=== PATIENT | male | born 1970 | race Caucasian/White ===

== ENCOUNTER 2022-06-25 00:57 | Emergency (ER) | payer BC, MEDICAID, SELFPAY ==
--- NOTE | 2022-06-25 | ECG_ITS ---
APPROVED REPORT Exam: Resting ECG HR:64 bpm ECG Measurements Heart Rate 64 AXES NC 181 P 65 QRSd 106 QRS 35 QT 421 T 34 QTc 430 Conclusion SINUS RHYTHM NORMAL ECG UNCONFIRMED REPORT Electronically signed by : Robbie Beltran MD 06/25/2022 21:39:32
[2022-06-25 00:57] VITALS: BP 155/97; PULSE 66; RESP 14; TEMP 35.2; O2SAT 99; BMI 22.9
--- NOTE | 2022-06-25 01:26 | XR_ITS ---
PROCEDURE INFORMATION: Exam: XR Chest Exam date and time: 06/25/2022 1:30 AM Age: 51 years old Clinical indication: Screening exam; Other screening; Patient HX: Poss. Od; Additional info: Routine TECHNIQUE: Imaging protocol: Radiologic exam of the chest. Views: 1 view. COMPARISON: No relevant prior studies available. FINDINGS: Lungs: Lung volumes are mildly diminished. The lungs appear clear. No focal areas of consolidation. Pleural spaces: No pleural effusions. Negative for pneumothorax. Heart/Mediastinum: Cardiac silhouette and pulmonary vasculature are within range of normal. Bones/joints: There is no evidence of acute fracture. IMPRESSION: Negative for an acute cardiopulmonary abnormality.
--- NOTE | 2022-06-25 01:27 | HMH.EDOD ---
Discharge Plan Disposition Chief Complaint: Overdose Referrals Follow up/Referrals: Provider,Referral, [Primary Care Provider] - See instructions Clinical Impressions Clinical Impression: Poisoning by opiate or related narcotic, Renal insufficiency Instructions Patient Instructions: DI for Drug Overdose in Adults Discharge ED Provider: Esteban (ED)Son Overdose HPI General Chief Complaint: Overdose Stated Complaint: OD Time Seen by Provider: 06/25/22 01:27 Mode of Arrival: EMS Source of Information: Patient, EMS and Medical Record Limitations: No Limitations Description of Symptoms (Recalled from ER Triage Doc. by RN): PT brought in by ems after call out for possible OD. the pt arrived drowsey and hard to rouse. EMS stated that the pt had 6 of narcan prior to arrival. it was stated the pt was agressive and combative prior to arrival History of Present Illness HPI Narrative: pt report iv and nasal use of drugs and was given narcan complaint: accidental overdose Onset (ago): hour(s) Treatments Prior to Arrival: narcan Related Data Allergies Allergy/AdvReac Type Severity Reaction Status Date / Time No Known Allergies Allergy Verified 06/25/22 01:25 [facility] Disclaimer: The information contained in this section may have been updated after the patient was seen, as this information can be updated by other users. Social History Smoking Status: Current every day smoker alcohol intake: current current occupational status: employed Travel in the last 8 weeks: None ROS Obtained: Yes All systems reviewed & no additional complaints except as documented Physical Exam General General appearance: alert Head Head exam: normocephalic Eye Eye exam: Present PERRL and EOMI; Absent scleral icterus ENT ENT exam: Present mucous membranes moist Neck Neck exam: Present trachea midline Respiratory Respiratory exam: Absent respiratory distress Cardiovascular Cardiovascular exam: Present regular rate Abdominal Exam Abdominal exam: Present soft Extremities Exam Extremities exam: Present full ROM Neurological Exam Neurological exam: Present alert and CN II-XII intact; Absent motor sensory deficit Skin Skin exam: Absent rash Medical Decision Making Medical Records Medical records reviewed: Yes I reviewed the patient's medical records. Roger Banerjee Pt receiving controlled substance: No Vital Signs: 06/25/22 00:57 Temperature 95.4 F L Temperature Source Oral Pulse Rate [Left] 66 Respiratory Rate 14 Blood Pressure [Right Arm] 155/97 H Blood Pressure Mean [Right Arm] 116 02 Sat by Pulse Oximetry 99 Oxygen Delivery Method Room Air Lab Data Lab results reviewed: Yes I reviewed the patient's lab results. Orders (Tests/Meds): ORDERS Category Date Time Status XR chest portable Stat Exams 06/25/22 01:26 Ordered Complete Blood Count Auto Diff Stat Lab 06/25/22 01:00 Received Comprehensive Metabolic Panel Stat Lab 06/25/22 01:00 Received Troponin I Q3H Lab 06/25/22 04:30 Ordered Troponin I Q3H Lab 06/25/22 07:30 Ordered Troponin I Stat Lab 06/25/22 01:00 Received Urinalysis and Microscopic Stat Lab 06/25/22 01:26 Ordered Radiology Data #1: Image(s): Chest Image Reviewed: Yes I have reviewed radiologist's interpretation Preliminary Findings: Normal/NAD ECG Data Tracing #1: Normal Sinus Rhythm: Yes Ischemic changes: non-specific ST-T wave changes ECG compared to prior tracings: there are no prior tracings available for comparison Critical Care Time Critical Care Time Critical Care Time: No Attestation: On 06/25/22, the high probability of a clinically significant, sudden or life threatening deterioration of the following system(s) required my full and direct attention, intervention and personal management. The time I documented below is in addition to time spent performing reported procedures but includes the following liste
[2022-06-25 01:35] LABS: Chloride 99 mmol/L (98-107); Potassium 3.5 mmoL/L (3.5-5.1); Sodium 140 mmol/L (136-145)
[2022-06-25 01:36] LABS: Basophils % 0.3 % (0.1-2.0); Eosinophils # 0.5 K/mm3 (0.0-0.4); Eosinophils % 3.6 % (0.1-12.0); Hematocrit 46.6 % (42.0-52.0); Hemoglobin 14.7 g/dL (14.1-18.0); Lymphocytes # 1.7 K/mm3 (0.7-4.5); Lymphocytes % 13.1 % (10-50); Mean Corpuscular HGB Conc 31.6 g/dL (31.8-35.4); Mean Corpuscular Hemoglobin 29.8 pg (27.0-31.2); Mean Corpuscular Volume 94.5 fl (80-94); Monocytes # 0.8 K/mm3 (0.1-1.0); Monocytes % 6.1 % (1.7-9.3); Neutrophils # 9.8 K/mm3 (1.8-7.8); Neutrophils % 76.8 % (37.0-80.0); Platelet Count 389 K/mm3 (142-424); Red Blood Count 4.93 M/mm3 (4.60-6.20); Red Cell Distribution Width 13.6 % (11.5-17.5); White Blood Count 12.7 K/mm3 (4.8-10.8)
[2022-06-25 01:38] LABS: Alanine Aminotransferase 61 U/L (12-78); Albumin Level 4.2 g/dl (3.5-5.0); Albumin/Globulin Ratio 1.4 (1.1-1.8); Alkaline Phosphatase 86 U/L (38-126); Anion Gap 13.5 mEq/L (5-15); Aspartate Amino Transferase 70 U/L (17-59); Bilirubin,Total 0.6 mg/dl (0.2-1.3); Blood Urea Nitrogen 27 mg/dl (9-20); Carbon Dioxide 31 mmol/L (22.0-30.0); Creatinine Clearance Estimated 57 mL/min (50-200); Estimated Glomerular Filt Rate 46 ml/min (>60); GFR (African American) 56 ML/MIN (>60); Globulin 3.1 g/dL (1.3-3.2); Total Protein,Serum 7.3 g/dl (6.3-8.2)
[2022-06-25 01:39] LABS: Calcium 9.5 mg/dl (8.4-10.2); Glucose 134 mg/dl (74-100)
[2022-06-25 01:57] LABS: Troponin I < 0.01 ng/ml (0.00-0.034)
[2022-06-25 02:56] VITALS: BP 173/107; PULSE 70; RESP 7; O2SAT 98
--- NOTE | 2022-06-25 02:57 | PC.NURSE ---
Rounded on pt. Pt complains of nausea, RN notified.
[2022-06-25 03:00] VITALS: BP 172/110; PULSE 69; RESP 9; O2SAT 98
[2022-06-25 03:01] LABS: Microscopic, Urine URINE MICROSCOPIC (MICROSCOPIC)
[2022-06-25 03:03] LABS: Appearance,Urine CLEAR (Clear); Bilirubin,Urine Negative (Negative); Blood, Urine Negative (Negative); Color,Urine YELLOW (Yellow); Glucose,Urine (UA) TRACE (Negative); Ketones,Urine Negative (Negative); Leukocyte Esterase,Urine Negative (Negative); Nitrate,Urine Negative (Negative); PH,Urine 6.5 (5.0-8.5); Protein,Urine Negative (Negative); Specific Gravity, Urine 1.025 (1.005-1.030); Urobilinogen,Urine 0.2 EU/dl (0.2)
[2022-06-25 03:22] LABS: Bacteria,Urine 1+ /lpf; Hyaline Casts,Urine Occasional #/lpf (0); Mucus,Urine 1+ /lpf; Squamous Epithelial Cell,Urine Occasional #/hpf (0-5)
--- NOTE | 2022-06-25 03:46 | PC.NURSE ---
Rounded on patient with md. Pt states that he feels much better and would like to go home. Patient was educated on the risks of addiction and asked if he needed referrals for detox or drug addiction. Patient refused. Patient ambulated around the room independently. Patient did have an episode of vomiting and was given 4 mg of zofran (for a total of 8mg). Pt reiterates that he would feel better to go home and recover at home.
[2022-06-25 03:47] LABS: Benzodiazepines Screen,Urine Negative ng/ml (<200)
[2022-06-25 03:48] LABS: Barbiturates Screen,Urine Negative ng/ml (<200)
[2022-06-25 03:50] LABS: Cannabinoid Screen,Urine Positive ng/ml (<50); Methadone Screen,Urine Negative ng/ml (<300)
[2022-06-25 03:51] LABS: Opiate Screen,Urine Negative ng/ml (<300)
[2022-06-25 03:52] LABS: Phencyclidine Screen,Urine Negative ng/ml (<25)
[2022-06-25 03:58] VITALS: BP 172/110; PULSE 69; RESP 12; TEMP 36.4; O2SAT 98
[2022-06-25 06:29] LABS: Cocaine Screen,Urine Positive ng/ml (<300)
[2022-06-30 12:23] LABS: Amphetamine Positive (.); Amphetamine (GC/MS) 2534 ng/mL (Cutoff=500); Amphetamines Positive (.); Methamphetamine Positive (.); Methamphetamine (GC/MS) >3000 ng/mL (Cutoff=500)
== END 2022-06-25 04:04 | disposition home or self-care (01) ==
PROVIDERS: Emergency Provider Emergency Medicine
DX: T40.2X1A Poisoning by other opioids, accidental (unintentional), initial encounter (principal); F17.200 Nicotine dependence, unspecified, uncomplicated
CPT/HCPCS: 71045; 80053; 80305; 80324; 81001; 84484; 85025; 93005; 96361; 96374; 96375; 99285; J2405

== ENCOUNTER 2024-02-17 14:55 | Outpatient (CLI) | payer MEDICAID, SELFPAY ==
[2024-02-17 19:07] LABS: Chol/HDL Ratio 1.9 (1-3.5); Cholesterol 140 mg/dl (140-200); HDL Cholesterol 74 mg/dl (40-60); Triglycerides 42 mg/dl (30-150); VLDL Cholesterol 8 mg/dL (0-40)
[2024-02-17 19:22] LABS: 25-OH Vitamin D, Total 52.5 ng/mL (30-100)
[2024-02-17 20:08] LABS: Direct LDL Cholesterol 56.17 mg/dL (100-129)
[2024-02-17 20:16] LABS: T4 (Thyroxine) 10.5 ug/dl (5.53-11.0)
[2024-02-17 20:31] LABS: Thyroid Stimulating Hormone 3.07 uIU/mL (0.465-4.68)
[2024-02-17 20:37] LABS: HIV Combo NEGATIVE (Negative)
[2024-02-17 20:48] LABS: Hepatitis C Ab Qual. W/ RFX REACTIVE (Negative)
== END 2024-02-17 23:59 | disposition home or self-care (01) ==
LOC: LAB.DROPOF 02-18 10:55
PROVIDERS: PCP Nurse Practitioner Family; Visit Provider Nurse Practitioner Family
DX: B18.2 Chronic viral hepatitis C (principal); I10 Essential (primary) hypertension; M54.50 Low back pain, unspecified; K21.9 Gastro-esophageal reflux disease without esophagitis; Z20.7 Contact with and (suspected) exposure to pediculosis, acariasis and other infestations; Z76.89 Persons encountering health services in other specified circumstances
CPT/HCPCS: 80061; 82306; 84436; 84443; 86803; 87389; 87522

== ENCOUNTER 2024-03-17 12:40 | Outpatient (CLI) | payer MEDICAID, SELFPAY ==
[2024-03-17 19:12] LABS: Basophils % 0.4 % (0.1-2.0); Eosinophils # 0.3 K/mm3 (0.0-0.4); Eosinophils % 3.5 % (0.1-12.0); Hematocrit 42.2 % (42.0-52.0); Hemoglobin 13.6 g/dL (14.1-18.0); Lymphocytes # 2.1 K/mm3 (0.7-4.5); Lymphocytes % 24.8 % (10-50); Mean Corpuscular HGB Conc 32.2 g/dL (31.8-35.4); Mean Corpuscular Hemoglobin 27.8 pg (27.0-31.2); Mean Corpuscular Volume 86.1 fl (80-94); Mean Platelet Volume 10.7 fl (7.4-10.4); Monocytes # 0.8 K/mm3 (0.1-1.0); Monocytes % 9.9 % (1.7-9.3); Neutrophils # 5.1 K/mm3 (1.8-7.8); Neutrophils % 60.9 % (37.0-80.0); Platelet Count 399 K/mm3 (142-424); Red Cell Distribution Width 13.6 % (11.5-17.5); White Blood Count 8.3 K/mm3 (4.8-10.8)
[2024-03-17 19:38] LABS: Alanine Aminotransferase 54 U/L (12-78); Albumin Level 4.1 g/dl (3.5-5.0); Albumin/Globulin Ratio 1.5 (1.1-1.8); Alkaline Phosphatase 131 U/L (38-126); Anion Gap 14.6 mEq/L (5-15); Aspartate Amino Transferase 52 U/L (17-59); Bilirubin,Total 0.3 mg/dl (0.2-1.3); Blood Urea Nitrogen 17 mg/dl (9-20); Calcium 9.7 mg/dl (8.4-10.2); Carbon Dioxide 29 mmol/L (22.0-30.0); Chloride 98 mmol/L (98-107); Estimated Glomerular Filt Rate 70 ml/min (>60); GFR (African American) 85 ML/MIN (>60); Globulin 2.8 g/dL (1.3-3.2); Glucose 112 mg/dl (74-100); Potassium 3.6 mmoL/L (3.5-5.1); Sodium 138 mmol/L (136-145); Total Protein,Serum 6.9 g/dl (6.3-8.2)
[2024-03-18 16:12] LABS: HCG Qualitative, Serum Negative (Negative)
[2024-03-19 11:35] LABS: Hep A Ab, Total Positive (Negative); Hep B Core Ab, Total Positive (Negative); Hep B Surface Ab, Qual Reactive (.); Hepatitis B Surface Antigen Negative (Negative)
[2024-03-21 17:12] LABS: Hepatitis C Genotype 1a (.)
[2024-03-22 00:06] LABS: ALT (SGPT) P5P 49 IU/L (0-55); Alpha 2-Macroglobulins, Qn 277 mg/dL (110-276); Apolipoprotein A-1 154 mg/dL (101-178); Bilirubin, Total 0.2 mg/dL (0.0-1.2); Fibrosis Score 0.19 (0.00-0.21); GGT 36 IU/L (0-65); Haptoglobin 173 mg/dL (29-370); Necroinflammat Activity Grade A0-A1 (.); Necroinflammat Activity Score 0.25 (0.00-0.17)
== END 2024-03-17 23:59 | disposition home or self-care (01) ==
LOC: LAB.DROPOF 03-18 11:06
PROVIDERS: PCP Nurse Practitioner Family; Visit Provider Nurse Practitioner Family
DX: B18.2 Chronic viral hepatitis C (principal); M79.89 Other specified soft tissue disorders; I10 Essential (primary) hypertension; K21.9 Gastro-esophageal reflux disease without esophagitis; Z20.7 Contact with and (suspected) exposure to pediculosis, acariasis and other infestations
CPT/HCPCS: 80053; 81517; 84703; 85025; 86704; 86706; 86708; 87340; 87902

== ENCOUNTER 2024-05-08 15:52 | Observation (INO) | payer MEDICAID, SELFPAY ==
[2024-05-08] VITALS (23 sets, daily range): BP systolic 154–214; BP diastolic 96–138; PULSE 56–81; RESP 8–19; TEMP 36.4–37.2; O2SAT 90–100; BMI 27.3; BMI 26.9
--- NOTE | 2024-05-08 16:10 | ECG_ITS ---
APPROVED REPORT Exam: Resting ECG HR:75 bpm ECG Measurements Heart Rate 75 AXES [place] 176 P 48 QRSd 108 QRS 15 QT 413 T -12 QTc 442 Conclusion SINUS RHYTHM VOLTAGE CRITERIA FOR LVH [MEETS CRITERIA IN ONE OF: R(aVL), S(V1), R(V5), R(V5/V6)+S(V1)] NONSPECIFIC ST & T-WAVE ABNORMALITY ABNORMAL ECG UNCONFIRMED REPORT Electronically signed by : Shubham Andre, 05/08/2024 23:19:08
[2024-05-08] MEDS: NALOXONE 0.4MG/ML VIAL 0.4 MG IV (16:19)
--- NOTE | 2024-05-08 16:28 | HMH.EDGENADL ---
Discharge Plan Disposition Patient Disposition: Admitted Chief Complaint: Overdose Prescriptions Prescriptions: No Action lisinopril 10 mg tablet 10 mg PO DAILY Qty: 90 0RF metoprolol succinate 25 mg tablet extended release 24 hr 25 mg PO DAILY Qty: 90 0RF omeprazole 10 mg capsule,delayed release(DR/EC) 10 mg PO DAILY Qty: 90 0RF clindamycin HCl 300 mg capsule 300 mg PO Q8H 10 Days Qty: 30 0RF permethrin [Elimite] 5 % cream 1 applic topical Q14D Qty: 60 0RF Rx Instructions: apply second treatment 14 days after first treatment if live lice remain Referrals Follow up/Referrals: Provider,Referral, MD [Primary Care Provider] - See instructions Instructions Patient Instructions: Subjective Opioid Withdrawal Scale (SOWS) Print Language Print Language: Albanian Discharge ED Provider: Larisa Andre General Adult HPI General Chief complaint: Overdose Stated complaint: Overdose Time Seen by Provider: 05/08/24 16:10 Mode of Arrival: Ambulatory Source of Information: Patient Description of Symptoms (Recalled from ER Triage Doc. by RN): pt was found under bridge unresponsive, given 2 mg intranasal narcan, pt states he took ice meth today, doesnt know if it was laced with anything or not. per ems patient is homeless, pt is still lethargic upon triage but does wake upon stimulation and only complains of nausea, applied 2l of o2 via nasal cannula History of Present Illness HPI narrative: The patient is a 53-year-old male brought in today after unintentional overdose. [place] Police Department responded and gave the patient 2 of intranasal Narcan then called EMS. Apparently patient significantly improved after that. Patient was awake enough to tell us and EMS that he only took meth/ice to his knowledge. Did not intentionally take any opiates. Has a known history of injection drug use and hepatitis C in the past. From a chart review standpoint has not followed up regarding hepatitis C treatment. Initially further history unable to be obtained because patient was still somnolent. Related Data Previous Rx's ?Medication ?Instructions ?Recorded clindamycin HCl 300 mg capsule 300 mg PO Q8H 10 days #30 caps 03/17/24 lisinopril 10 mg tablet 10 mg PO DAILY #90 tabs 03/17/24 metoprolol succinate 25 mg 25 mg PO DAILY #90 tabs 03/17/24 tablet,extended release 24 hr omeprazole 10 mg capsule,delayed 10 mg PO DAILY #90 caps 03/17/24 release permethrin 5 % topical cream 1 applic topical Q14D 2 doses #60 03/17/24 (Elimite) grams Allergies Allergy/AdvReac Type Severity Reaction Status Date / Time No Known Allergies Allergy Verified 03/17/24 11:59 [facility] Disclaimer: The information contained in this section may have been updated after the patient was seen, as this information can be updated by other users. Family History Grandfather Stroke Heart attack Brother Diabetes Social History Smoking Status: Current every day smoker alcohol intake: current current occupational status: employed Travel in the last 8 weeks: None ROS Obtained: Yes All systems reviewed & no additional complaints except as documented Physical Exam General General appearance: lethargic Eye Eye exam: Present other (Pinpoint pupils) Respiratory Respiratory exam: Present other (Depressed respiratory rate) Cardiovascular Cardiovascular exam: Present regular rate Neurological Exam Neurological exam: Present other (GCS of 14 eyes closed somnolent) Medical Decision Making Medical Records Screening: Per USPSTF and CDC recommendations, given the prevalence of disease in our region, it is our hospital?s policy to screen for HIV and viral Hepatitis for all patients aged 18 and over and those with ongoing risk factors. Roger Inquiry Pt receiving controlled substance: No Vital Signs: 05/08/24 16:00 05/08/24 16:08 05/08/24 16:30 Temperature 98.2 F Temperature Source Oral Pulse Rate 72 68 Pulse Rate [Left Radial] 70 Respiratory Rate 15 12 10 L Blood Pressure 166/111 H 172/105 H Blood Pressure [Right Arm] 166/111 H Blood Pressure Mean [Right Arm] 129 02 Sat by Pulse Oximetry 98 90 L 98 Oxygen Delivery Method Nasal Cannula Room Air Nasal Cannula Oxygen Flow Rate (LPM) 2 2 05/08/24 17:00 05/08/24 17:30 05/08/24 18:01 Temperature Temperature Source Pulse Rate 64 68 72 Pulse Rate [Left Radial] Respiratory Rate 13 19 14 Blood Pressure 175/113 H 168/121 H 190/120 H Blood Pressure [Right Arm] Blood Pressure Mean [Right Arm] 02 Sat by Pulse Oximetry 98 100 97 Oxygen Delivery Method Room Air Room Air Room Air Oxygen Flow Rate (LPM) Lab Data Lab results reviewed: Yes I reviewed the patient's lab results. Lab Results 05/08/24 16:05: WBC 8.1, RBC 4.89, Hgb 13.4 L, Hct 42.0, MCV 85.9, MCH 27.4, MCHC 31.9, RDW 14.3, Plt Count 350, MPV 10.8 H, Neut % (Auto) 74.1, Lymph % (Auto) 15.2, Williams % (Auto) 7.9, Eos % (Auto) 2.6, Baso % (Auto) 0.2, Neut # (Auto) 6.0, Lymph # (Auto) 1.2, Williams # (Auto) 0.6, Eos # (Auto) 0.2, Baso # (Auto) 0.0, Sodium 141, Potassium 3.9, Chloride 107, Carbon Dioxide 25, Anion Gap 12.9, BUN 24 H, Creatinine 1.60 H, Estimated Creat Clear 62, Estimated GFR 46 L, Est GFR ( Amer) 55 L, Glucose 150 H, Calcium 9.4, Total Bilirubin 0.5, AST 52, ALT 55, Alkaline Phosphatase 100, Total Protein 7.6, Albumin 4.0, Globulin 3.6 H, Albumin/Globulin Ratio 1.1, Salicylates < 1.0 L, Acetaminophen < 10 L, Plasma/Serum Alcohol < 10, HCV Ab JOSE w/Rflx PCR Qn Reactive 05/08/24 16:05 05/08/24 16:05 Orders (Tests/Meds): ED MEDICATIONS Generic Name Dose Route Start Last Admin Trade Name Freq PRN Reason Stop Dose Admin Lactated Ringer's 1,000 mls @ 999 mls/hr 05/08/24 19:00 05/08/24 19:09 Lactated Ringer's 1000 Ml Bag IV 05/08/24 20:00 999 mls/hr .Q1H1M LIN Administration Naloxone HCl 4 mg/ Dextrose 254 mls @ 25.4 mls/hr 05/08/24 19:01 05/08/24 19:10 IV 06/07/24 19:00 0.4 mg/hr .Q10H LIN 25.4 mls/hr Administration 0.4 MG/HR Discontinued Medications Generic Name Dose Route Start Last Admin Trade Name Freq PRDiamond Reason Stop Dose Admin Naloxone HCl 0.4 mg 05/08/24 16:18 05/08/24 16:19 Naloxone 0.4mg/Ml Vial IV 05/08/24 16:19 0.4 mg ONCE ONE Administration ORDERS Category Date Time Status Consult [employer] Reel Tender [CONS] Routine Cons 05/08/24 16:20 Active Acetaminophen Stat Lab 05/08/24 16:05 Completed CBC w/Auto Diff [Complete Blood Count Auto Diff] Stat Lab 05/08/24 16:05 Completed CMP [Comprehensive Metabolic Panel] Stat Lab 05/08/24 16:05 Completed Ethanol [Ethyl Alcohol] Stat Lab 05/08/24 16:05 Completed HCV RNA PCR, Quant Stat Lab 05/08/24 16:05 Received Hepatitis C Ab Qual. W/ RFX Stat Lab 05/08/24 16:05 Completed Salicylate Stat Lab 05/08/24 16:05 Completed UDS [Drug Screen,Urine] Stat Lab 05/08/24 19:00 Ordered Medical Decision Narrative: 53-year-old presents today with acute opiate overdose given the fact that he was unresponsive and given Narcan prehospital and had significant improvement in symptoms. He did have recurrence of his somnolence when in the emergency department sad depressed respirations pinpoint pupils and is still altered requiring more Narcan. He was given a dose of 0.4 mg of IV Narcan with significant improvement. At this point he was awake enough to talk to me. States that he forgot to follow-up about his hepatitis C treatment. Denies intentional overdose. States he was only trying to use ice today and did not intentionally take any type of opiates. Clearly he had some type of opiate involved with what ever he injected today. Likely fentanyl. Patient was placed in ED observation status. He has no other complaints at the moment we will keep an eye on him for at least several hours. I am also calling the hepatitis C links to care team to come talk to him as well as her peer navigator will make sure to discharge the patient on Narcan as well. Patient has been arousable on multiple reassessments but continues to be excessively somnolent out of proportion to what is normally expected with fentanyl or just opiate overdose. Patient continues to have depressed respiratory rate pupils are still pinpoint after 3 hours of observation. At this point I suspect he has coingestions ongoing certainly not in a capacity to go home. He has nobody to be with he [place] Additionally it is very cold outside he would be at high risk for environment injury such as hypothermia. Patient will be given a Narcan infusion. Escalation of blood work has been performed. Patient will be admitted until he is more stable and in a condition to ultimately be discharged. Reassessment 7:31 PM labs unremarkable from an emergency standpoint does have some mild renal insufficiency creatinine of 1.6 has had that in the past. Otherwise unremarkable from an emergency standpoint. Patient will be admitted on IV Narcan infusion as stated above. Critical Care Critical Care Time Critical Care Time: Yes Attestation: On 05/08/24, the high probability of a clinically significant, sudden or life threatening deterioration of the following system(s) required my full and direct attention, intervention and personal management. The time I documented below is in addition to time spent performing reported procedures but includes the following listed in this critical care notation. Total Time Total Critical Care Time: 35
--- NOTE | 2024-05-08 17:43 | PC.NURSE ---
SPECIAL SERVICES DIRECTOR noted patient high BP to ER MD, no further orders given per ER MD
[2024-05-08 17:50] LABS: Hepatitis C Ab Qual. W/ RFX REACTIVE (Negative)
[2024-05-08 19:06] LABS: Basophils % 0.2 % (0.1-2.0); Eosinophils # 0.2 K/mm3 (0.0-0.4); Eosinophils % 2.6 % (0.1-12.0); Hemoglobin 13.4 g/dL (14.1-18.0); Lymphocytes # 1.2 K/mm3 (0.7-4.5); Lymphocytes % 15.2 % (10-50); Mean Corpuscular HGB Conc 31.9 g/dL (31.8-35.4); Mean Corpuscular Hemoglobin 27.4 pg (27.0-31.2); Mean Corpuscular Volume 85.9 fl (80-94); Mean Platelet Volume 10.8 fl (7.4-10.4); Monocytes # 0.6 K/mm3 (0.1-1.0); Monocytes % 7.9 % (1.7-9.3); Neutrophils % 74.1 % (37.0-80.0); Platelet Count 350 K/mm3 (142-424); Red Blood Count 4.89 M/mm3 (4.60-6.20); Red Cell Distribution Width 14.3 % (11.5-17.5); White Blood Count 8.1 K/mm3 (4.8-10.8)
[2024-05-08] MEDS: LACTATED RINGERS 1000ML 1,000 ML 999 ML IV (19:09)
[2024-05-08] MEDS: DEXTROSE 5% IV (19:10)
[2024-05-08] MEDS: NALOXONE HCL IV (19:10)
[2024-05-08] MEDS: WATER IV (19:10)
[2024-05-08 19:14] LABS: Alanine Aminotransferase 55 U/L (12-78); Albumin/Globulin Ratio 1.1 (1.1-1.8); Alkaline Phosphatase 100 U/L (38-126); Anion Gap 12.9 mEq/L (5-15); Aspartate Amino Transferase 52 U/L (17-59); Bilirubin,Total 0.5 mg/dl (0.2-1.3); Blood Urea Nitrogen 24 mg/dl (9-20); Calcium 9.4 mg/dl (8.4-10.2); Carbon Dioxide 25 mmol/L (22.0-30.0); Chloride 107 mmol/L (98-107); Creatinine Clearance Estimated 62 mL/min (50-200); Estimated Glomerular Filt Rate 46 ml/min (>60); GFR (African American) 55 ML/MIN (>60); Globulin 3.6 g/dL (1.3-3.2); Glucose 150 mg/dl (74-100); Potassium 3.9 mmoL/L (3.5-5.1); Sodium 141 mmol/L (136-145); Total Protein,Serum 7.6 g/dl (6.3-8.2)
[2024-05-08 19:19] LABS: Acetaminophen < 10 ug/ml (10-30); Ethyl Alcohol < 10 mg/dl (0-10); Salicylate < 1.0 mg/dL (2.0-20.0)
--- NOTE | 2024-05-08 19:25 | PEERSUPPORT ---
Peer Support Note Patient Information Patient Information: DOS: 05/08/2024 ? Reason: Stim UD Ps ED Consult ? Drug(s) of Choice: Meth ? Last Use: Today ? Narcan/Self: Yes ? Narcan/Others: Yes ? Previous MAT/MOUD: None ? Current MAT/MOUD: None ? Desire for MAT/MOUD: None at this time ? Previous Treatment: [facility]- Substance Use Program while incarcerated ? Longest Length of Sobriety: 6 Months following [facility] ? Support System: None ? Legal Issues: Possible active court orders ? Potential Barriers: -Unhoused/Homelessness -Untreated mental and emotional health -Lack of connection to resources -Lack of Support ? Harm reduction: -Education on MAURI- Risk of Drugs laced with Fentanyl -Pt is attending needle exchange program in [place], [place]. -Connection to [facility]. -Resources of treatment referrals all levels of care. -Narcan upon discharge. -Risk Awareness of fatal overdose continued use. ? Motivation for Change: -Pt stated he wants to go to inpatient, but has personal belongings with sentimentals he needs to secure before going. Tearfully he shared his son from opiate overdose in 2020, his father 5 months ago, mother at age 11, two sisters have , and a brother. He only has one living brother who he has a relationship with over the phone. ? He stated he feels like he is done and rebuilding back will be to hard. Ps shared personal experiences emphasizing the opportunities gained through treatment and commitment to recovery to foster hope and strength. ? Pt is not able to hold a consistent conversation, for falling asleep. ? Ps will continue to follow up on number provided from pt. Pt is agreeing and receptive when alert, expressing gratitude. ? Plan of Action: -Medically Stabilize by ED. -Narcan upon discharge/Risk Involved with continued use? -Ps to follow up with pt offering recovery focused support. ?
--- NOTE | 2024-05-08 19:38 | PC.NURSE ---
Was unable to find recourses on titration of Narcan gtt. Called and spoke with Renetta at [facility] and she was unable to find titration information. Per MD Andre, keep Narcan gtt @0.4mg/hr and do not titrate.
--- NOTE | 2024-05-08 20:59 | P.HP_ITS ---
<Statement entered by Shubham Miller MD - 05/09/24 14:01> Rounded on patient after nurse practitioner. Personally examined and interviewed patient. Agree with exam findings and care plan as documented. Off narcan gtt overnight. History of Present Illness *Admission Date: 05/08/24 *Reason for visit:: Overdose *History of present illness: A 53-year-old male with a history of injection drug use and untreated hepatitis C presents after an unintentional overdose, [place] police who administered 2 doses of intranasal Narcan, prompting improvement. EMS reports he awoke enough to state he only used methamphetamine (?ice?), denying intentional opiate use. Initially somnolent in the ED, further history was limited. On arrival, he is hemodynamically stable but exhibits recurrence of somnolence, depressed respirations, and pinpoint pupils, requiring 0.4 mg IV Narcan with significant improvement. He confirms forgetting hepatitis C follow- up and insists he only used ?ice,? suggesting possible fentanyl contamination. Labs show creatinine 1.60, GFR 46, glucose 150, AST 52, ALT 55, and reactive HCV antibody; other results are unremarkable. Placed in ED observation, he remains excessively somnolent after 3 hours, with persistent respiratory depression and pinpoint pupils, out of proportion to typical opiate overdose, raising concern for coingestion. He?s homeless, [place], and at risk for hypothermia in current cold weather, with no support to monitor him. Differential includes opiate overdose (likely fentanyl), coingestion, or metabolic/toxicologic issues. Workup includes labs and observation; he received Narcan IV and a crystalloid bolus. Due to ongoing altered status and social risks, admission is planned with a Narcan infusion, hepatitis C care team referral, and peer navigator support for discharge with Narcan. [facility] Disclaimer: The information contained in this section may have been updated after the patient was seen, as this information can be updated by other users. Medical History (Updated 05/08/24 @ 22:16 by Emily Seaman RN) Neuropathy GERD (gastroesophageal reflux disease) Hypertension Family History Grandfather Stroke Heart attack Brother Diabetes Social History Smoking Status: Current every day smoker alcohol intake: current current occupational status: employed Travel in the last 8 weeks: None Review of Systems Review of Systems Review of systems (narrative): 13 point review of system negative except as listed in HPI Meds Home Medications and Allergies Home Medications ?Medication ?Instructions ?Recorded ?Confirmed ?Type clindamycin HCl 300 mg capsule 300 mg PO Q8H 10 days #30 caps 03/17/24 03/17/24 Rx lisinopril 10 mg tablet 10 mg PO DAILY #90 tabs 03/17/24 03/17/24 Rx metoprolol succinate 25 mg 25 mg PO DAILY #90 tabs 03/17/24 03/17/24 Rx tablet,extended release 24 hr omeprazole 10 mg capsule,delayed 10 mg PO DAILY #90 caps 03/17/24 03/17/24 Rx release permethrin 5 % topical cream 1 applic topical Q14D 2 doses #60 03/17/24 03/17/24 Rx (Elimite) grams New Prescriptions to Start Prescriptions: Allergies Allergy/AdvReac Type Severity Reaction Status Date / Time No Known Allergies Allergy Verified 03/17/24 11:59 Exam Data for Last 24 hours Vital signs and Labs for Last 24 Hours: Temp Pulse Resp BP Pulse Ox O2 Del Method O2 Flow Rate 98.9 F 69 8 L 185/117 H 97 Nasal Cannula 2 05/08/24 20:10 05/08/24 20:10 05/08/24 20:10 05/08/24 20:10 05/08/24 18:01 05/08/24 20:10 05/08/24 20:10 Laboratory Results - last 24 hr 05/08/24 16:05: WBC 8.1, RBC 4.89, Hgb 13.4 L, Hct 42.0, MCV 85.9, MCH 27.4, MCHC 31.9, RDW 14.3, Plt Count 350, MPV 10.8 H, Neut % (Auto) 74.1, Lymph % (Auto) 15.2, Sabine % (Auto) 7.9, Eos % (Auto) 2.6, Baso % (Auto) 0.2, Neut # (Auto) 6.0, Lymph # (Auto) 1.2, Sabine # (Auto) 0.6, Eos # (Auto) 0.2, Baso # (Auto) 0.0, Sodium 141, Potassium 3.9, Chloride 107, Carbon Dioxide 25, Anion Gap 12.9, BUN 24 H, Creatinine 1.60 H, Estimated Creat Clear 62, Estimated GFR 46 L, Est GFR ( Amer) 55 L, Glucose 150 H, Calcium 9.4, Total Bilirubin 0.5, AST 52, ALT 55, Alkaline Phosphatase 100, Total Protein 7.6, Albumin 4.0, Globulin 3.6 H, Albumin/Globulin Ratio 1.1, Salicylates < 1.0 L, Acetaminophen < 10 L, Plasma/Serum Alcohol < 10, HCV Ab JOSE w/Rflx PCR Qn Reactive I & O for Last 24 hours: Intake & Output 05/05/24 05/06/24 05/07/24 05/08/24 23:59 23:59 23:59 23:59 Weight 81.647 kg Constitutional Constitutional: no acute distress, disheveled, cooperative and somnolent *Routine HEENT Exam Head: Present normocephalic Eye: Present EOMI and PERRL ENT: Present mucous membranes moist *Routine Neck Exam Neck: Present supple; Absent lymphadenopathy *Routine Respiratory Exam Respiratory: Present CTA bilaterally *Routine Cardiovascular Exam Cardiovascular: Present RRR *Routine Abdominal Exam Abdominal: Present soft and normoactive bowel sounds; Absent tenderness *Routine Rectal Exam Rectal:: deferred *Routine Genitalia Exam Genitalia:: deferred *Routine Extremities Exam Extremities: Absent cyanosis, clubbing or edema *Routine Skin Exam Skin: Present warm; Absent rash *Routine Neurological Exam Neurological: Present alert and oriented X3 Routine Psychiatric Exam Psychiatric: Present cooperative and depressed Assessment and Plan *Assessment and plan (1) Overdose: Status: Acute Category: Medical Code(s): T50.901A - Poisoning by unspecified drugs, medicaments and biological substances, accidental (unintentional), initial encounter (2) HTN, goal below 140/90: Status: Acute Category: Medical Code(s): I10 - Essential (primary) hypertension (3) Low Back Pain: Status: Acute Category: Medical Code(s): M54.50 - Low back pain, unspecified (4) Hep C w/o coma, chronic: Status: Acute Category: Medical Code(s): B18.2 - Chronic viral hepatitis C (5) Renal insufficiency: Status: Acute Category: Medical Code(s): N28.9 - Disorder of kidney and ureter, unspecified (6) Poisoning by opiate or related narcotic: Status: Acute Category: Medical Plan Opiate Overdose with Suspected Fentanyl Contamination * This is a 53-year-old male with a history of injection drug use and untreated hepatitis C, [place] bridge, improved with 2 doses of intranasal Narcan prehospital, reporting only methamphetamine (?ice?) use but denying intentional opiates. In the ED, he became somnolent with depressed respirations and pinpoint pupils, requiring 0.4 mg IV Narcan with improvement, though excessive somnolence persists after 3 hours, suggesting fentanyl or other opiate involvement. Exam shows stable vitals but ongoing altered mentation and respiratory depression. Labs reveal creatinine 1.60, GFR 46, glucose 150, AST 52, ALT 55, and reactive HCV antibody; other results unrema rkable. * Admit to hospital medicine with telemetry for ongoing opiate overdose management. * Start Narcan infusion at 0.4 mg/h, titrate to maintain respiratory rate >12 and alertness, taper once stable for 6-8 hours. * Monitor respiratory rate, O2 saturation, and mental status q1h. * Blood cultures x2, urinalysis/culture to rule out infection contributing to somnolence. * Repeat CMP, CBC in 12h to track renal function and glucose. Possible Coingestion * Excessive somnolence and prolonged respiratory depression beyond typical fentanyl duration raise concern for additional substances (e.g., benzodiazepines, alcohol), though UDS, ethanol, and salicylate/acetaminophen levels are negative or low. * Expanded toxicology screen (serum) to evaluate for coingestants * ECG to assess QTc and arrhythmia risk from potential adulterants. * Hold sedatives; continue supportive care with IV fluids (LR at 75 mL/h). Chronic Kidney Disease (Stage III) * Creatinine 1.60, GFR 46, consistent with prior mild renal insufficiency, possibly worsened by dehydration or drug effects. * Avoid nephrotoxins, monitor renal function with daily BMP. * Nephrology consult outpatient if GFR declines further post-discharge. Hepatitis C (Untreated) * Reactive HCV antibody, elevated AST 52/ALT 55, no recent follow-up or treatment per chart review, patient confirms non-compliance. * Consider Liver ultrasound to assess for cirrhosis given transaminitis. * Monitor LFTs q24h. Substance Use Disorder * History of injection drug use, current methamphetamine use with likely fentanyl exposure, UDS negative for opiates despite recent Percocet fill, suggesting inconsistent use or adulterated supply. * Case management consult for inpatient counseling and harm reduction strategies. * Peer navigator to provide Narcan kit and education at discharge. * Offer nicotine replacement if smoker (not specified). Social and Environmental Risks * Homeless, living [place], at high risk for hypothermia in cold weather, no support system for post-discharge monitoring. * Social work consult to arrange custodial or transitional care placement. * Ensure warm clothing and safe discharge location. Disposition * Patient admitted to hospital medicine in stable but altered condition for Narcan infusion, overdose management, and social support coordination, pending stabilization and consults.
--- NOTE | 2024-05-08 21:02 | PC.NURSE ---
FSBS 86
[2024-05-08] MEDS: HYDRALAZINE 20MG/ML VIAL 10 MG IV (21:28)
[2024-05-08] MEDS: LACTATED RINGERS 1000ML 1,000 ML 75 ML IV (21:28)
[2024-05-08] MEDS: PANTOPRAZOLE 40MG VIAL 40 MG IV (21:29)
[2024-05-08] MEDS: SODIUM CHLORIDE 0.9% 10ML VIAL 10 ML IV (21:29)
[2024-05-08 22:17] LABS: NT Pro Brain Natriuretic Pep. 237 pg/mL (0-125)
[2024-05-09] VITALS (23 sets, daily range): BP systolic 150–192; BP diastolic 87–118; PULSE 71–90; RESP 10–20; TEMP 36.6–36.8; O2SAT 97–100; BMI 26.8
--- NOTE | 2024-05-09 00:14 | PC.NURSE ---
Pt admitted to ICU rm 217. Pt is on narcan gtt @0.4mg/hr. LR infusing @75ml/hr per MAR. GCS 14. Pt is somnolent, but arousable to voice. Pt is A&Ox4. Upon admission, pt refused CRE swab and skin assessment of back side. Open wounds noted to right [place] and left calf. scabs/small open areas noted to left elbow. Pt reports he believes that happened when he overdosed and fell over yesterday. Pt reports he was taking an antibiotic for an infection in his legs. Reg GOEL made aware of this. SENIOR IT SPECIALIST also made aware aware of pts BP being high since admission. PRN order placed and carried out for hydralazine 10mg IV. See MAR and documented VS. Pt was given chicken salad sandwich, chips, rice krispies, and diet starry upon admission. Pt tolerated PO intake well. FSBS was 86.
--- NOTE | 2024-05-09 01:18 | PC.NURSE ---
UA sent to lab at this time
[2024-05-09] MEDS: HYDRALAZINE 20MG/ML VIAL 10 MG IV (01:49)
[2024-05-09 01:59] LABS: Benzodiazepines Screen,Urine Negative ng/ml (<200)
[2024-05-09 02:01] LABS: Barbiturates Screen,Urine Negative ng/ml (<200)
[2024-05-09 02:03] LABS: Cannabinoid Screen,Urine Positive ng/ml (<50); Methadone Screen,Urine Negative ng/ml (<300)
[2024-05-09 02:04] LABS: Cocaine Screen,Urine Negative ng/ml (<300); Opiate Screen,Urine Negative ng/ml (<300)
[2024-05-09 02:05] LABS: Phencyclidine Screen,Urine Negative ng/ml (<25)
[2024-05-09] MEDS: ONDANSETRON 4MG/2ML VIAL 4 MG IV (03:03)
--- NOTE | 2024-05-09 04:14 | PC.NURSE ---
Melinda downs DC per Reg GOEL
--- NOTE | 2024-05-09 04:16 | PC.NURSE ---
Pt up to BSC. GCS 15. Pt reports nausea. Medicated per MAR. Reg GOEL notified. Pt also received 2nd dose of hydralzine for BP. see MAR and VS. While on BSC , pt became tearful stating he could have and he messed up yesterday. Pt voiced that he knowingly used 5-6 units in an insulin syringe of heroin IV yesterday and this was his drug of choice. Pt reports he was sober for one year before yesterday. Reg GOEL made aware.
[2024-05-09 06:07] LABS: Basophils % 0.3 % (0.1-2.0); Eosinophils # 0.2 K/mm3 (0.0-0.4); Eosinophils % 1.8 % (0.1-12.0); Hematocrit 40.8 % (42.0-52.0); Hemoglobin 12.7 g/dL (14.1-18.0); Lymphocytes # 1.6 K/mm3 (0.7-4.5); Lymphocytes % 14.8 % (10-50); Mean Corpuscular HGB Conc 31.1 g/dL (31.8-35.4); Mean Corpuscular Hemoglobin 27.2 pg (27.0-31.2); Mean Corpuscular Volume 87.4 fl (80-94); Mean Platelet Volume 11.1 fl (7.4-10.4); Monocytes # 1.2 K/mm3 (0.1-1.0); Monocytes % 11.2 % (1.7-9.3); Neutrophils # 7.5 K/mm3 (1.8-7.8); Neutrophils % 71.9 % (37.0-80.0); Platelet Count 218 K/mm3 (142-424); Red Blood Count 4.67 M/mm3 (4.60-6.20); Red Cell Distribution Width 14.5 % (11.5-17.5); White Blood Count 10.4 K/mm3 (4.8-10.8)
[2024-05-09 06:31] LABS: Chloride 108 mmol/L (98-107); Potassium 3.6 mmoL/L (3.5-5.1); Sodium 140 mmol/L (136-145)
[2024-05-09 06:34] LABS: Anion Gap 11.6 mEq/L (5-15); Blood Urea Nitrogen 18 mg/dl (9-20); Carbon Dioxide 24 mmol/L (22.0-30.0); Creatinine Clearance Estimated 82 mL/min (50-200); Estimated Glomerular Filt Rate 64 ml/min (>60); GFR (African American) 77 ML/MIN (>60)
[2024-05-09 06:35] LABS: Chol/HDL Ratio 2.5 (1-3.5); Cholesterol 140 mg/dl (140-200); Glucose 82 mg/dl (74-100); HDL Cholesterol 57 mg/dl (40-60); Magnesium 1.9 mg/dl (1.6-2.3); Phosphorous 2.8 mg/dl (2.5-4.5); Triglycerides 31 mg/dl (30-150); VLDL Cholesterol 6 mg/dL (0-40)
[2024-05-09 06:46] LABS: Direct LDL Cholesterol 58.81 mg/dL (100-129)
[2024-05-09] MEDS: LISINOPRIL 10MG TABLET 10 MG PO ×2 (08:38→11:42)
[2024-05-09] MEDS: METOPROLOL SUCCINATE XL 25MG TABLET 25 MG PO (08:38)
--- NOTE | 2024-05-09 09:15 | SW/DCPLANNER ---
I spoke w/ this patient regarding plans once medically stable for discharge. Patient stated that he is currently homeless but has a friend that offers a place for him to shower and eat. Patient and I had an extensive conversation regarding inpatient rehab vs outpatient rehab vs homeless shelters at time of discharge. Patient is adamant to return to [place] at time of discharge to gather belongings prior to making any discharge plans. I did provide patient w/ an [facility] Resource List for any future needs. Patient voiced that he currently has a warrant against him and he plans to turn himself in soon. I will continue to follow up w/ this patient and assist w/ any needs/new orders.
[2024-05-09] MEDS: FUROSEMIDE 40MG/4ML VIAL 40 MG IV (09:22)
--- NOTE | 2024-05-09 09:36 | HMH.PHAINT1 ---
Pharmacy Intervention Comments: MEDICATION RECONCILIATION COMPLETED ON PATIENT USING EXTERNAL FILL HISTORY FROM PHARMACY. -GREGORIO HAYWARD, [place]
--- NOTE | 2024-05-09 09:56 | PC.NURSE ---
Current Medications Acetaminophen (Acetaminophen 325mg Tab) 650 mg PO Q6HP PRN PRN Reason: Fever or Mild Pain (1-3) Stop: 06/07/24 19:53 Hydralazine HCl (Hydralazine 20mg/Ml Vial) 10 mg IV Q4HP PRN PRN Reason: Blood Pressure - High Stop: 06/07/24 21:15 Last Admin: 05/09/24 01:49 Dose: 10 mg Naloxone HCl 4 mg/ Dextrose 254 mls @ 25.4 mls/hr IV .Q10H [facility] Stop: 06/07/24 19:00 Last Admin: 05/09/24 09:36 Dose: Not Given Lactated Ringer's (Lactated Ringer's 1000 Ml Bag) 1,000 mls @ 75 mls/hr IV .[id number] [facility], [facility]1983 Stop: 06/07/24 19:59 Last Admin: 05/09/24 08:48 Dose: Not Given Lisinopril (Lisinopril 10mg Tablet) 10 mg PO DAILY [facility] Stop: 06/08/24 08:59 Last Admin: 05/09/24 08:38 Dose: 10 mg Metoprolol Succinate (Metoprolol Succinate Xl 25mg Tablet) 25 mg PO DAILY [facility] Stop: 06/08/24 08:59 Last Admin: 05/09/24 08:38 Dose: 25 mg Ondansetron HCl (Ondansetron 4mg/2ml Vial) 4 mg IV Q6HP PRN PRN Reason: Nausea Stop: 06/07/24 19:53 Last Admin: 05/09/24 03:03 Dose: 4 mg Pantoprazole Sodium (Pantoprazole 40mg Vial) 40 mg IV HS LIN Stop: 06/07/24 20:59 Last Admin: 05/08/24 21:29 Dose: 40 mg Sodium Chloride (Sodium Chloride 0.9% 10ml Flush Syringe) 10 ml IV NEEDED PRN PRN Reason: Maintain IV Site Stop: 06/07/24 19:53 Sodium Chloride (Sodium Chloride 0.9% 10ml Vial) 10 ml IV NEEDED PRN PRN Reason: dilute protonix Stop: 06/07/24 19:53 Last Admin: 05/08/24 21:29 Dose: 10 ml
--- NOTE | 2024-05-09 11:12 | EXP.DC.SUM ---
General Admission date:: 05/08/24 Discharge date: 05/09/24 HPI HPI HPI: A 53-year-old male with a history of injection drug use and untreated hepatitis C presents after an unintentional overdose, [place] un[place] bridge by police who administered 2 doses of intranasal Narcan, prompting improvement. EMS reports he awoke enough to state he only used methamphetamine (?ice?), denying intentional opiate use. Initially somnolent in the ED, further history was limited. On arrival, he is hemodynamically stable but exhibits recurrence of somnolence, depressed respirations, and pinpoint pupils, requiring 0.4 mg IV Narcan with significant improvement. He confirms forgetting hepatitis C follow-up and insists he only used ?ice,? suggesting possible fentanyl contamination. Labs show creatinine 1.60, GFR 46, glucose 150, AST 52, ALT 55, and reactive HCV antibody; other results are unremarkable. Placed in ED observation, he remains excessively somnolent after 3 hours, with persistent respiratory depression and pinpoint pupils, out of proportion to typical opiate overdose, raising concern for coingestion. He?s [place], [place], and at risk for hypothermia in current cold weather, with no support to monitor him. Differential includes opiate overdose (likely fentanyl), coingestion, or metabolic/toxicologic issues. Workup includes labs and observation; he received Narcan IV and a crystalloid bolus. Due to ongoing altered status and social risks, admission is planned with a Narcan infusion, hepatitis C care team referral, and peer navigator support for discharge with Narcan. Hospital Course Hospital Course Hospital Course: This is a 53-year-old male with a history of injection drug use and untreated hepatitis C, found unresponsive [place] a bridge, improved with 2 doses of intranasal Narcan prehospital, reporting only methamphetamine (?ice?) use but denying intentional opiates. In the ED, he became somnolent with depressed respirations and pinpoint pupils, requiring 0.4 mg IV Narcan with improvement, though excessive somnolence persists after 3 hours, suggesting fentanyl or other opiate involvement. Exam shows stable vitals but ongoing altered mentation and respiratory depression. Labs reveal creatinine 1.60, GFR 46, glucose 150, AST 52, ALT 55, and reactive HCV antibody; other results unremarkable. Admitted to the medicine on telemetry. Started on Narcan infusion. Responded well and able to wean off infusion overnight. Improved mentation by morning. Stable respiratory rate, no oxygen requirement. Stable to discharge further management as an outpatient. Problems addressed as follows: Opiate overdose -Admitted obtunded. Started on Narcan drip. Able to wean off oxygen on Narcan drip by morning. Somnolence resolved. Tolerating p.o. intake by morning. Further testing during admission showed hep C antibody. Has had no follow-up for treatment. Case management assisting with support. Patient is homeless but has a friend who offered him a place to stay. Since her conversation with social work about rehab and homeless shelters. He is adamant to return to [facility] upon discharge. [facility] transport scheduled/arranged to provide transfer back to [facility]. Medically stable to discharge. Chronic Kidney Disease (Stage III) -Creatinine 1.6 at time of admission. Stable following morning. Avoid nephrotoxins. Total time spent on discharge 32 minutes in counseling, documentation, chart review, and direct care with patient. Exam Data for Last 24 hours Vital signs and Labs for Last 24 Hours: Temp Pulse Resp BP Pulse Ox O2 Del Method O2 Flow Rate 98.2 F 76 14 164/112 H 98 Room Air 2 05/09/24 08:00 05/09/24 10:30 05/09/24 10:30 05/09/24 10:32 05/09/24 10:30 05/09/24 11:00 05/08/24 22:30 Laboratory Results - last 24 hr 05/08/24 16:05: WBC 8.1, RBC 4.89, Hgb 13.4 L, Hct 42.0, MCV 85.9, MCH 27.4, MCHC 31.9, RDW 14.3, Plt Count 350, MPV 10.8 H, Neut % (Auto) 74.1, Lymph % (Auto) 15.2, [place] % (Auto) 7.9, Eos % (Auto) 2.6, Baso % (Auto) 0.2, Neut # (Auto) 6.0, Lymph # (Auto) 1.2, [place] # (Auto) 0.6, Eos # (Auto) 0.2, Baso # (Auto) 0.0, Sodium 141, Potassium 3.9, Chloride 107, Carbon Dioxide 25, Anion Gap 12.9, BUN 24 H, Creatinine 1.60 H, Estimated Creat Clear 62, Estimated GFR 46 L, Est GFR ( Amer) 55 L, Glucose 150 H, Calcium 9.4, Total Bilirubin 0.5, AST 52, ALT 55, Alkaline Phosphatase 100, Total Protein 7.6, Albumin 4.0, Globulin 3.6 H, Albumin/Globulin Ratio 1.1, Salicylates < 1.0 L, Acetaminophen < 10 L, Plasma/Serum Alcohol < 10, HCV Ab JOSE w/Rflx PCR Qn Reactive 05/08/24 20:57: NT-Pro-B Natriuret Pep 237 H 05/09/24 01:09: Urine Opiates Screen Negative, Urine Methadone Screen Negative, Ur Barbituates Screen Negative, Ur Phencyclidine Scrn Negative, Ur Amphetamines Screen TNP, U Benzodiazepines Scrn Negative, Urine Cocaine Screen Negative, U Marijuana (THC) Screen Positive H 05/09/24 05:38: WBC 10.4 D, RBC 4.67, Hgb 12.7 L, Hct 40.8 L, MCV 87.4, MCH 27.2, MCHC 31.1 L, RDW 14.5, Plt Count 218 D, MPV 11.1 H, Neut % (Auto) 71.9, Lymph % (Auto) 14.8, [place] % (Auto) 11.2 H, Eos % (Auto) 1.8, Baso % (Auto) 0.3, Neut # (Auto) 7.5, Lymph # (Auto) 1.6, [place] # (Auto) 1.2 H, Eos # (Auto) 0.2, Baso # (Auto) 0.0, Sodium 140, Potassium 3.6, Chloride 108 H, Carbon Dioxide 24, Anion Gap 11.6, BUN 18, Creatinine 1.20 D, Estimated Creat Clear 82, Estimated GFR 64, Est GFR ( Amer) 77 D, Glucose 82 D, Calcium 9.0, Phosphorus 2.8, Magnesium 1.9, Triglycerides 31, Cholesterol 140, LDL Cholesterol Direct 58.81 L, VLDL Cholesterol 6, HDL Cholesterol 57, Cholesterol/HDL Ratio 2.5 I & O for Last 24 hours: Intake & Output 05/06/24 05/07/24 05/08/24 05/09/24 23:59 23:59 23:59 23:59 Intake Total 1583.14 / 1583.14 Output Total 1200 / 1200 Balance 383.14 / 383.14 Weight 80.467 kg 80.286 kg Constitutional Constitutional: no acute distress, chronically ill appearing and cooperative *Routine HEENT Exam Head: Present normocephalic Eye: Present EOMI and PERRL ENT: Present mucous membranes moist *Routine Neck Exam Neck: Present supple; Absent lymphadenopathy *Routine Respiratory Exam Respiratory: Present CTA bilaterally *Routine Cardiovascular Exam Cardiovascular: Present RRR *Routine Abdominal Exam Abdominal: Present soft and normoactive bowel sounds; Absent tenderness *Routine Extremities Exam Extremities: Absent cyanosis, clubbing or edema *Routine Skin Exam Skin: Present warm; Absent rash *Routine Neurological Exam Neurological: Present alert, oriented X3 and moving all extremities; Absent altered mental status Results Data Completed and Pending Labs on day of discharge: Labs from last 24 hours 05/09/24 05/09/24 05/08/24 05:38 01:09 20:57 WBC 10.4 D RBC 4.67 Hgb 12.7 L Hct 40.8 L MCV 87.4 MCH 27.2 MCHC 31.1 L RDW 14.5 Plt Count 218 D MPV 11.1 H Neut % (Auto) 71.9 Lymph % (Auto) 14.8 [place] % (Auto) 11.2 H Eos % (Auto) 1.8 Baso % (Auto) 0.3 Neut # (Auto) 7.5 Lymph # (Auto) 1.6 [place] # (Auto) 1.2 H Eos # (Auto) 0.2 Baso # (Auto) 0.0 Sodium 140 Potassium 3.6 Chloride 108 H Carbon Dioxide 24 Anion Gap 11.6 BUN 18 Creatinine 1.20 D Estimated Creat Clear 82 Estimated GFR 64 Est GFR ( Amer) 77 D Glucose 82 D Calcium 9.0 Phosphorus 2.8 Magnesium 1.9 Total Bilirubin AST ALT Alkaline Phosphatase NT-Pro-B Natriuret Pep 237 H Total Protein Albumin Globulin Albumin/Globulin Ratio Triglycerides 31 Cholesterol 140 LDL Cholesterol Direct 58.81 L VLDL Cholesterol 6 HDL Cholesterol 57 Cholesterol/HDL Ratio 2.5 Salicylates Urine Opiates Screen Negative Urine Methadone Screen Negative Acetaminophen Ur Barbituates Screen Negative Ur Phencyclidine Scrn Negative Ur Amphetamines Screen TNP U Benzodiazepines Scrn Negative Urine Cocaine Screen Negative U Marijuana (THC) Screen Positive H Plasma/Serum Alcohol HCV Ab JOSE w/Rflx PCR Qn 05/08/24 16:05 WBC 8.1 RBC 4.89 Hgb 13.4 L Hct 42.0 MCV 85.9 MCH 27.4 MCHC 31.9 RDW 14.3 Plt Count 350 MPV 10.8 H Neut % (Auto) 74.1 Lymph % (Auto) 15.2 [place] % (Auto) 7.9 Eos % (Auto) 2.6 Baso % (Auto) 0.2 Neut # (Auto) 6.0 Lymph # (Auto) 1.2 [place] # (Auto) 0.6 Eos # (Auto) 0.2 Baso # (Auto) 0.0 Sodium 141 Potassium 3.9 Chloride 107 Carbon Dioxide 25 Anion Gap 12.9 BUN 24 H Creatinine 1.60 H Estimated Creat Clear 62 Estimated GFR 46 L Est GFR ( Amer) 55 L Glucose 150 H Calcium 9.4 Phosphorus Magnesium Total Bilirubin 0.5 AST 52 ALT 55 Alkaline Phosphatase 100 NT-Pro-B Natriuret Pep Total Protein 7.6 Albumin 4.0 Globulin 3.6 H Albumin/Globulin Ratio 1.1 Triglycerides Cholesterol LDL Cholesterol Direct VLDL Cholesterol HDL Cholesterol Cholesterol/HDL Ratio Salicylates < 1.0 L Urine Opiates Screen Urine Methadone Screen Acetaminophen < 10 L Ur Barbituates Screen Ur Phencyclidine Scrn Ur Amphetamines Screen U Benzodiazepines Scrn Urine Cocaine Screen U Marijuana (THC) Screen Plasma/Serum Alcohol < 10 HCV Ab JOSE w/Rflx PCR Qn Reactive DS: Diagnosis Discharge Diagnosis (1) Overdose: Status: Acute Code(s): T50.901A - Poisoning by unspecified drugs, medicaments and biological substances, accidental (unintentional), initial encounter (2) HTN, goal below 140/90: Status: Acute Code(s): I10 - Essential (primary) hypertension (3) Low Back Pain: Status: Acute Code(s): M54.50 - Low back pain, unspecified (4) Hep C w/o coma, chronic: Status: Acute Code(s): B18.2 - Chronic viral hepatitis C (5) Renal insufficiency: Status: Acute Code(s): N28.9 - Disorder of kidney and ureter, unspecified (6) Poisoning by opiate or related narcotic: Status: Acute Meds Home Medications and Allergies Home Medications ?Medication ?Instructions ?Recorded ?Confirmed ?Type lisinopril 20 mg tablet 20 mg PO DAILY #30 tabs 05/09/24 Rx metoprolol succinate 25 mg 25 mg PO DAILY 30 days #30 tabs 05/09/24 Rx tablet,extended release 24 hr naloxone 4 mg/actuation nasal 4 mg intranasal Q2M PRN opioid 05/09/24 Rx spray (Narcan) overdose #2 ea omeprazole 10 mg capsule,delayed 10 mg PO DAILY 30 days #30 caps 05/09/24 Rx release New Prescriptions to Start Prescriptions: lisinopril Shubham Miller metoprolol succinate Shubham Miller naloxone [Narcan] Paul,Shubham omeprazole Shubham Miller Allergies Allergy/AdvReac Type Severity Reaction Status Date / Time No Known Allergies Allergy Verified 03/17/24 11:59 Discharge Plan Disposition Patient Disposition: Home, Self-Care Condition: Fair Follow up Plan Follow up with: Rome Garay APRN [Nurse Practitioner] - 05/18/24 10:00 am (see him in [place]) Prescriptions/Medication Reconciliation: New naloxone [Narcan] 4 mg/actuation spray,non-aerosol 4 mg intranasal Q2M PRN (Reason: opioid overdose) Qty: 2 0RF Rx Instructions: spray 1 dose into ONE nostril; alternate nostrils w each dose until help arrives lisinopril 20 mg tablet 20 mg PO DAILY Qty: 30 0RF Continued omeprazole 10 mg capsule,delayed release(DR/EC) 10 mg PO DAILY 30 Days Qty: 30 0RF metoprolol succinate 25 mg tablet extended release 24 hr 25 mg PO DAILY 30 Days Qty: 30 0RF Discontinued lisinopril 10 mg tablet 10 mg PO DAILY Qty: 90 0RF Problem Reconciliation Problems Reviewed?: Yes Patient Discharge Instructions ACTIVITY: Continue current activity DIET: continue same diet Patient Instructions: Treatments for High Blood Pressure: More Than Just Taking a Pill, Hypertension (Alternative Therapy), DI for Drug Overdose in Adults Print Language: Azeri Providers Primary Care Provider: Provider,Referral Admit Provider: Portillo Flanagan Attending Provider: Portillo Flanagan
--- NOTE | 2024-05-09 14:24 | SW/DCPLANNER ---
Called [facility] and arranged transportation for patient to go home. Abel KATE Hand Molder And Caster
--- NOTE | 2024-05-09 14:46 | PEERSUPPORT ---
Peer Support Note Patient Information Patient Information: DOS: 05/09/2024 Reason: Stim UD(meth)/OUD ? Building Rapport: Pt stated he slept well last night and still feels sleepy. He was able to eat a good breakfast this morning and was hungry again. He is able to identify from past attempts at recovery that sleep is very helpful. Ps and pt discuss the importance of basic needs such as food, water, sleep, and longterm as well as safety are all vital for recovery. ? Pt is wanting to go to inpatient treatment just not today. ? Cristina Fink visits pt discussing and treatment plan for Hep C treatment. Pt is receptive and understanding of this plan. -Attend appointments or as walking at [facility] in [place], [place] -Bloodwork for further testing of liver -Start medication -Stay in contact with Cristina through [facility] care in [place] ? Pt is hopeful with plan in place for Hep C treatment that is possible aligning with plan for inpatient treatment for substance use disorder. ? Ps and pt discuss in depth history of drug use and family relationships. ? Pt discloses legal relations that motivate him to commit to inpatient treatment. ? Pt reflects on achieving recovery in the past sharing safe coping skills and practices that have worked for him to be used again. -Boundaries-Say No -Awareness of surroundings; people, places, things that are triggering or give access to using. -Practicing hopeful mindset for growth instead of negative. ? Pt briefly shared grief to loved ones he has lost and not been able to mourn in a healthy manner or have opportunity to. ? Ps educated on untreated mental and emotional health being under lying issues to addiction that is all treatable through services offered through inpatient or outpatient specialized treatment for substance use disorder. ? Ps facilitates assessment via phone call to [facility]. Pt completes intake assessment. ? Plan of Action:? -Refrain from using drugs and or alcohol -Take medications as prescribed. -Relapse Prevention Written Plan: Safe coping skills, Social Supports, safe place environments, Tips for avoiding relapse/Risk involved with continued use. -Harm reduction: Narcan two dose package Advise to not use alone [facility] Intake assessment complete -Report to [facility] 05/10/2024 -Make contact with Cristina and yaron Faye. Contact #s in relapse prevention plan. ?
--- NOTE | 2024-05-11 10:21 | SW/DCPLANNER ---
Phoned patient x2. Could not leave name or number it kept giving me a busy signal. Abel KATE Phlebotomist Medical Lab Assistant
[2024-05-12 11:14] LABS: Amphetamine Positive (.); Amphetamine (GC/MS) 1360 ng/mL (Cutoff=500); Amphetamines Positive (.); Methamphetamine Positive (.); Methamphetamine (GC/MS) >3000 ng/mL (Cutoff=500)
== END 2024-05-09 16:06 | disposition home or self-care (01) ==
LOC: ER 19:32 → 2ND 21:04
PROVIDERS: Nurse Practitioner Family; Admitting Provider Student in an Organized Health Care Education/Training Program; Emergency Provider Student in an Organized Health Care Education/Training Program; Visit Provider Student in an Organized Health Care Education/Training Program
DX: T40.604A Poisoning by unspecified narcotics, undetermined, initial encounter (principal); R40.0 Somnolence; Y92.89 Other specified places as the place of occurrence of the external cause; K21.9 Gastro-esophageal reflux disease without esophagitis; R06.00 Dyspnea, unspecified; B18.2 Chronic viral hepatitis C; M54.50 Low back pain, unspecified; F17.210 Nicotine dependence, cigarettes, uncomplicated; I12.9 Hypertensive chronic kidney disease with stage 1 through stage 4 chronic kidney disease, or unspecified chronic kidney disease; F15.10 Other stimulant abuse, uncomplicated; N18.30 Chronic kidney disease, stage 3 unspecified; Z59.02 Unsheltered homelessness; Z82.3 Family history of stroke; Z82.49 Family history of ischemic heart disease and other diseases of the circulatory system; Z83.3 Family history of diabetes mellitus
CPT/HCPCS: 80048; 80053; 80061; 80307; 80320; 80324; 80329; 83735; 83880; 84100; 85025; 86803; 87040; 87522; 93005; 99291; G0378; J0360; J1940; J2310; J2405; J7060; J7120